=== PATIENT | male | born 1940 | race Caucasian/White ===

== ENCOUNTER 2018-11-04 14:53 | Inpatient (IN) | payer OTHER, MEDICARE ==
--- NOTE | 2018-11-04 16:55 | PDOC ---
History of Present Illness - General Chief Complaint: Injury Stated Complaint: FALL Time Seen by Provider: 11/04/18 16:44 History Source: Patient Exam Limitations: Clinical Condition - History of Present Illness Initial Comments: 78 yo M w a hx of anxiety, dementia, CVA and depression presents to the ER [facility] for repeated falls. The patient was found down by the super of his building who called EMS and had the patient brought into the hospital. The patient admits that he fell down 3 times. He states his knees kept giving out on him and he would fall. He denies hitting his head or neck at any point during the 3 falls. The patient also denies taking any blood thinners or aspirin. The patient states he did not experience LOC from any of the falls. The patient denied having any chest pain or SOB at any point prior to the falls. The patient does endorse mildly decreased PO intake and excessive urination. He states he has been urinating more frequently than usual but denies dysuria or hematuria. Patient also denies recent fevers, chills, headaches, neck pain, blurry vision, N/v/d/c. PCP: None Psychiatrist: Dr. Zackary Avalos Hx: Patient lives alone and has no aid. Smokes 5 cigarettes/day. Denies recent alcohol (last drink Sunday) or illicit drug usage. Allergies: NKA, NKDA PSH: Right shoulder surgery Past History - Past Medical History Allergies/Adverse Reactions: Allergies Allergy/AdvReac Type Severity Reaction Status Date / Time No Known Allergies Allergy Verified 12/12/15 10:22 Home Medications: Ambulatory Orders Zolpidem Tartrate [Ambien] 10 mg PO HS #0 06/08/15 Sertraline HCl [Zoloft -] 200 mg PO DAILY 12/18/15 Bacitracin - [Bacitracin Topical Ointment -] 1 applic TP DAILY tube 12/23/15 Cyanocobalamin [Vitamin B12 -] 100 mcg PO DAILY tablet 12/23/15 Folic Acid - 1 mg PO DAILY tablet 12/23/15 Mirtazapine [Remeron -] 30 mg PO HS tablet 12/23/15 Quetiapine Fumarate [Seroquel -] 25 mg PO HS tablet 12/23/15 Thiamine HCl [Vitamin B1 -] 100 mg PO DAILY tablet 12/23/15 Anemia: No Asthma: No Cancer: No Cardiac Disorders: Yes CVA: Yes COPD: Yes CHF: Yes Dementia: Yes Diabetes: No GI Disorders: No Disorders: No HTN: Yes Hypercholesterolemia: No Liver Disease: No Psychiatric Problems: (anxiety) Seizures: No Thyroid Disease: No - Surgical History Abdominal Surgery: No Appendectomy: Yes Cardiac Surgery: No Cholecystectomy: No Lung Surgery: No Neurologic Surgery: No Orthopedic Surgery: No - Suicide/Smoking/Psychosocial Hx Smoking History: Never smoked Have you smoked in the past 12 months: No Number of Cigarettes Smoked Daily: 10 If you are a former smoker, when did you quit?: 3 YEARS AGO Information on smoking cessation initiated: No 'Breaking Loose' booklet given: 05/31/14 Hx Alcohol Use: No Drug/Substance Use Hx: No Substance Use Type: Prescribed Hx Substance Use Treatment: No Review of Systems - Review of Systems Able to Perform ROS?: Yes Constitutional: Yes: Malaise, Weakness. No: Chills, Diaphoresis, Fever, Loss of Appetite HEENTM: No: Eye Pain, Blurred Vision Respiratory: No: Shortness of Breath, Stridor, Wheezing, Productive cough Cardiac (ROS): Yes: Lightheadedness, Syncope. No: Chest Pain ABD/GI: No: Abdominal Distended, Constipated, Diarrhea, Nausea, Vomiting, Abdominal cramping : Yes: Frequency. No: Burning, Dysuria, Discharge, Flank Pain, Hematuria, Incontinence Musculoskeletal: Yes: Back Pain, Joint Pain Integumentary: Yes: Change in Color, Change in Hair/Nails, Dryness, Erythema, Lesions, Lumps, Pallor, Pruritus, Rash, Other (Fungi) Neurological: Yes: Unsteady Gait. No: Headache, Numbness, Paresthesia, Seizure , Tingling Psychiatric: Yes: Anxiety, Depression Endocrine: No: Excessive Sweating, Flushing, Intolerance to Cold, Intolerance to Heat, Unexplained Weight Loss Hematologic/Lymphatic: No: Blood Clots, Easy Bleeding, Bleeding Diathesis *Physical Exam - Vital Signs Last Vital Signs Temp Pulse Resp BP Pulse Ox 98.5 F 96 H 17 157/55 L 99 11/04/18 15:00 11/04/18 15:00 11/04/18 15:00 11/04/18 15:00 11/04/18 15:00 - Physical Exam General Appearance: Yes: Disheveled, Thin, Other (Not well kept. Soiled in urine and bowel. ). No: Nourished, Appropriately Dressed, Apparent Distress HEENT: positive: EOMI, MARY KAY, Normal ENT Inspection, Normal Voice Neck: positive: Supple Respiratory/Chest: positive: Lungs Clear, Normal Breath Sounds. negative: Respiratory Distress Cardiovascular: positive: Regular Rhythm, Regular Rate, S1, S2. negative: Edema , JVD Vascular Pulses: Dorsalis-Pedis (R): 2+, Doralis-Pedis (L): 2+ Gastrointestinal/Abdominal: positive: Normal Bowel Sounds, Flat, Soft. negative : Distended, Guarding, Rebound Rectal Exam: positive: deferred Lymphatic: negative: Adenopathy Musculoskeletal: positive: Decreased Range of Motion. negative: Vertebral Tenderness Extremity: positive: Normal Capillary Refill, Normal Range of Motion, Pelvis Stable, Erythema, Inflammation. 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 negative: Normal Response, Facial Droop, Confused ED Treatment Course - LABORATORY CBC & Chemistry Diagram: 11/04/18 17:28 11/04/18 17:28 Medical Decision Making - Medical Decision Making 78 yo M w a hx of anxiety, dementia, CVA and depression presents to the ER [facility] for repeated falls. The patient was found down by the super of his building who called EMS and had the patient brought into the hospital. The patient admits that he fell down 3 times. He states his knees kept giving out on him and he would fall. He denies hitting his head or neck at any point during the 3 falls. The patient also denies taking any blood thinners or aspirin. The patient states he did not experience LOC from any of the falls. The patient denied having any chest pain or SOB at any point prior to the falls. The patient does endorse mildly decreased PO intake and excessive urination. He states he has been urinating more frequently than usual but denies dysuria or hematuria. Patient also denies recent fevers, chills, headaches, neck pain, blurry vision, N/v/d/c. Vital Signs Period Temp Pulse Resp BP Sys/Morales Pulse Ox Last 24 Hr 98.5 F 96 17 157/55 99 DDx IBNLT: syncope, acs/mi, Brain bleed - subdural vs cva, electrolyte/ metabolic disturbance, UTI/pylo, PNA, orthostatic, dehydration, rhabdo, fracture Plan: Labs, Urine, CT, XR, EKG, food preparation worker request, Admit Telemtery for repeated falls CMP Sodium 139 mmol/L (136-145) 11/04/18 17:28 Potassium 4.1 mmol/L (3.5-5.1) 11/04/18 17:28 Chloride 104 mmol/L (98-107) 11/04/18 17:28 Carbon Dioxide 26 mmol/L (21-32) 11/04/18 17:28 Anion Gap 9 MMOL/L (8-16) 11/04/18 17:28 BUN 45.0 mg/dL (7-18) H 11/04/18 17:28 Creatinine 2.5 mg/dL (0.55-1.3) H 11/04/18 17:28 Est GFR (CKD-EPI)AfAm 27.86 11/04/18 17:28 Est GFR (CKD-EPI)NonAf 24.04 11/04/18 17:28 Random Glucose 95 mg/dL (74-106) 11/04/18 17:28 Calcium 8.9 mg/dL (8.5-10.1) 11/04/18 17:28 Phosphorus 3.2 mg/dL (2.5-4.9) 11/04/18 17:28 Magnesium 2.5 mg/dL (1.8-2.4) H 11/04/18 17:28 Total Bilirubin 0.5 mg/dL (0.2-1) 11/04/18 17:28 AST 219 U/L (15-37) H 11/04/18 17:28 ALT 90 U/L (13-61) H 11/04/18 17:28 Alkaline Phosphatase 149 U/L (45-117) H 11/04/18 17:28 Creatine Kinase 2143 U/L (26-308) H 11/04/18 17:28 Creatine Kinase Index 3.4 % (0.0-5.0) 11/04/18 17:28 CK-MB (CK-2) 74.2 ng/mL (0.5-3.6) H 11/04/18 17:28 Troponin I 0.05 ng/ml (0.00-0.05) 11/04/18 17:28 Total Protein 7.8 g/dl (6.4-8.2) 11/04/18 17:28 Albumin 4.1 g/dl (3.4-5.0) 11/04/18 17:28 Admitting patient to the hospital for repeated falls, SLY, and social media analyst consultation. *DC/Admit/Observation/Transfer Diagnosis at time of Disposition: Repeated falls, Need for follow-up by social media analyst, Kidney injury, Acute renal failure due to rhabdomyolysis, Fall - Discharge Dispostion Condition at time of disposition: Stable Decision to Admit order: Yes - Referrals - Patient Instructions - Post Discharge Activity
[2018-11-04] MEDS ORDERED: SODIUM CHLORIDE 1,000 ML IV STA (17:03)
[2018-11-04 17:39] LABS: BASO % 0.4 % (0-2.0); EOS % 0.9 % (0-4.5); HEMATOCRIT 46.3 % (35.4-49); HEMOGLOBIN 15.7 GM/dL (11.7-16.9); LYMPH % 7.4 % (8-40); MCH 32.6 pg (25.7-33.7); MCHC 33.8 g/dl (32.0-35.9); MEAN CELL VOLUME 96.5 fl (80-96); MEAN PLT VOLUME 8.4 fl (7.5-11.1); NEUT % 81.3 % (42.8-82.8); PLATELET COUNT 261 K/MM3 (134-434); RBC 4.79 M/mm3 (4.00-5.60); RDW 14.6 % (11.9-15.9); WHITE BLOOD COUNT 9.7 K/mm3 (4.0-10.0)
[2018-11-04 18:00] LABS: PHOSPHOROUS 3.2 mg/dL (2.5-4.9)
[2018-11-04 18:12] LABS: INR 1.32 (0.83-1.09); PROTHROMBIN TIME (PATIENT) 15.6 SEC (9.7-13.0)
[2018-11-04 18:16] LABS: EPI CELLS 0.6 /HPF (0-5/HPF); HYALINE CASTS 16 /lpf (0-8); PH,URINE 5.5 (5.0-8.0); URINE APPEARANCE CLEAR; URINE BILIRUBIN NEGATIVE (NEGATIVE); URINE COLOR YELLOW; URINE GLUCOSE (UA) NEGATIVE (NEGATIVE); URINE KETONE 1+ (NEGATIVE); URINE LEUK ESTERASE NEGATIVE (NEGATIVE); URINE NITRITE NEGATIVE (NEGATIVE); URINE PROTEIN 1+ (NEGATIVE); URINE RBC 2 /hpf (0-4); URINE UROBILINOGEN 0.2 mg/dL (0.2-1.0); URINE WBC 2 /hpf (0-5)
[2018-11-04 18:25] LABS: ALBUMIN 4.1 g/dl (3.4-5.0); BILIRUBIN,TOTAL 0.5 mg/dL (0.2-1); CALCIUM 8.9 mg/dL (8.5-10.1); CREATININE 2.5 mg/dL (0.55-1.3); MAGNESIUM 2.5 mg/dL (1.8-2.4); POTASSIUM 4.1 mmol/L (3.5-5.1); TOT PROT 7.8 g/dl (6.4-8.2)
--- NOTE | 2018-11-04 18:50 | PDOC ---
Documentation entered by Lanny Rollins SCRIBE, acting as scribe for Suzi Meek MD. Suzi Meek MD: This documentation has been prepared by the Ayo mcintyre Brenda, SCRIBE, under my direction and personally reviewed by me in its entirety. I confirm that the documentation accurately reflects all work, treatment, procedures, and medical decision making performed by me. Attending Attestation - Resident Resident Name: ZanderJay - ED Attending Attestation I have performed the following: I have examined & evaluated the patient, The case was reviewed & discussed with the resident, I agree w/resident's findings & plan, Exceptions are as noted - HPI HPI: 11/04/18 18:17 The patient is a 78 year old male, with a significant PMH of anxiety, dementia, CVA and depression who presents to the emergency department via EMS for repeated falls. The patient reported to be found by the super of his building, who then called EMS. The patient states that he fell down 3 times, and that his knees kept giving out on him, causing him to fall. The patient admits to having more frequent urination compared to baseline. The patient denies head trauma or neck trauma. Denies LOC. Denies chest pain, shortness of breath, headache and dizziness. Denies taking any blood thinners or aspirin. Denies fever, chills, nausea, vomiting, diarrhea and constipation. Denies dysuria and hematuria. Allergies: NKA Past surgical history: right shoulder surgery Social history: Lives alone with no aide. Smoked 5 cigarettes per day. No recent alcohol use (Last drink was Sunday). No drug usage. - Physicial Exam PE: 11/04/18 18:17 agree with resident exam - Medical Decision Making 11/04/18 18:44 78yo M presents to the ED after he was found on the ground by super Also reports urinary frequency Vitals unremarkable Pt denies LOC but is poor historian and is very unkempt on exam. States he was down in his home for unknown period of time States the super of his building checks in on him from time to time, but otherwise has no help at home Plan for syncope and trauma w/u. COncern for possible infection vs ischemia vs metabolic disarray vs alcoholism causing pt to fall frequently Anticipate admission. Heart Score/ECG Review #1 11/04/18 18:49 Twelve-lead EKG was performed and reviewed by me. Normal sinus rhythm, rate 89. Normal axis. No ST elevations.
--- NOTE | 2018-11-04 20:36 | HP ---
Admitting History and Physical - Primary Care Physician PCP: Radha Sutton - Admission History of Present Illness: 78 yo M w a hx of anxiety, dementia, CVA and depression presents to the ER [facility] for repeated falls. The patient was found down by the super of his building who called EMS and had the patient brought into the hospital. The patient admits that he fell down 3 times. He states his knees kept giving out on him and he would fall. He denies hitting his head or neck at any point during the 3 falls. The patient also denies taking any blood thinners or aspirin. The patient states he did not experience LOC from any of the falls. The patient denied having any chest pain or SOB at any point prior to the falls. The patient does endorse mildly decreased PO intake and excessive urination. He states he has been urinating more frequently than usual but denies dysuria or hematuria. Patient also denies recent fevers, chills, headaches, neck pain, blurry vision, N/v/d/c. - Past Medical History AIRPORT GUIDE: Yes: CVA Psych: Yes: Addictions, Depression - Smoking History Smoking history: Never smoked Have you smoked in the past 12 months: No Aproximately how many cigarettes per day: 10 If you are a former smoker, when did you quit?: 3 YEARS AGO - Alcohol/Substance Use Hx Alcohol Use: No History of Substance Use: reports: None - Social History ADL: Independent History of Recent Travel: No Home Medications - Allergies Allergies/Adverse Reactions: Allergies Allergy/AdvReac Type Severity Reaction Status Date / Time No Known Allergies Allergy Verified 12/12/15 10:22 - Home Medications Home Medications: Ambulatory Orders Zolpidem Tartrate [Ambien] 10 mg PO HS #0 06/08/15 Sertraline HCl [Zoloft -] 200 mg PO DAILY 12/18/15 Bacitracin - [Bacitracin Topical Ointment -] 1 applic TP DAILY tube 12/23/15 Cyanocobalamin [Vitamin B12 -] 100 mcg PO DAILY tablet 12/23/15 Folic Acid - 1 mg PO DAILY tablet 12/23/15 Mirtazapine [Remeron -] 30 mg PO HS tablet 12/23/15 Quetiapine Fumarate [Seroquel -] 25 mg PO HS tablet 12/23/15 Thiamine HCl [Vitamin B1 -] 100 mg PO DAILY tablet 12/23/15 Physical Examination Vital Signs: Vital Signs Temperature 98.5 F 11/04/18 15:00 Pulse Rate 80 11/04/18 20:16 Respiratory Rate 18 11/04/18 20:16 Blood Pressure 110/77 11/04/18 20:16 O2 Sat by Pulse Oximetry (%) 99 11/04/18 20:16 Constitutional: Yes: No Distress HENT: Yes: Atraumatic Neck: Yes: Supple Cardiovascular: Yes: Regular Rate and Rhythm Respiratory: Yes: Rhonchi Gastrointestinal: Yes: Normal Bowel Sounds Extremities: Yes: Other (scratches on legs) Edema: No Peripheral Pulses WNL: Yes Neurological: Yes: Alert Labs: CBC, BMP 11/04/18 17:28 11/04/18 17:28 Imaging - Results X-ray: Report Reviewed Cat Scan: Report Reviewed Problem List - Problems (1) Need for follow-up by director of social media marketing Assessment/Plan: for placement Code(s): Z09 - ENCNTR FOR F/U EXAM AFT TRTMT FOR COND OTH THAN MALIG NEOPLM (2) Repeated falls Assessment/Plan: PT eval meds need to be adjusted Code(s): R29.6 - REPEATED FALLS (3) Alcohol dependence Code(s): F10.20 - ALCOHOL DEPENDENCE, UNCOMPLICATED (4) Benzodiazepine dependence Code(s): F13.20 - SEDATIVE, HYPNOTIC OR ANXIOLYTIC DEPENDENCE, UNCOMPLICATED (5) Anxiety Code(s): F41.9 - ANXIETY DISORDER, UNSPECIFIED (6) Depression Code(s): F32.9 - MAJOR DEPRESSIVE DISORDER, SINGLE EPISODE, UNSPECIFIED (7) Acute renal failure due to rhabdomyolysis Assessment/Plan: on ivf renal consult Code(s): N17.9 - ACUTE KIDNEY FAILURE, UNSPECIFIED; D21.9 - BENIGN NEOPLASM OF CONNECTIVE AND OTHER SOFT TISSUE, UNSP Assessment/Plan Laboratory Tests 11/04/18 11/04/18 11/04/18 17:28 17:28 17:28 WBC 9.7 RBC 4.79 Hgb 15.7 Hct 46.3 MCV 96.5 H MCH 32.6 MCHC 33.8 RDW 14.6 Plt Count 261 MPV 8.4 Absolute Neuts (auto) 7.9 Neutrophils % 81.3 Lymphocytes % 7.4 L D Monocytes % 10.0 Eosinophils % 0.9 Basophils % 0.4 Nucleated RBC % 0 PT with INR 15.60 H INR 1.32 H Sodium 139 Potassium 4.1 Chloride 104 Carbon Dioxide 26 Anion Gap 9 BUN 45.0 H Creatinine 2.5 H Est GFR (CKD-EPI)AfAm 27.86 Est GFR (CKD-EPI)NonAf 24.04 Random Glucose 95 Calcium 8.9 Phosphorus Magnesium 2.5 H Total Bilirubin 0.5 AST 219 H ALT 90 H Alkaline Phosphatase 149 H Creatine Kinase 2143 H Creatine Kinase Index 3.4 CK-MB (CK-2) 74.2 H Troponin I 0.05 Total Protein 7.8 Albumin 4.1 Urine Color Urine Appearance Urine pH Ur Specific Knox Urine Protein Urine Glucose (UA) Urine Ketones Urine Blood Urine Nitrite Urine Bilirubin Urine Urobilinogen Ur Leukocyte Esterase Urine WBC (Auto) Urine RBC (Auto) Urine Casts (Auto) U Pathogenic Cast Auto U Epithel Cells (Auto) U Sm Round Cell (Auto) Urine Crystals (Auto) Urine Bacteria (Auto) Alcohol, Quantitative Blood Type Antibody Screen 11/04/18 11/04/18 11/04/18 17:28 17:28 17:28 WBC RBC Hgb Hct MCV MCH MCHC RDW Plt Count MPV Absolute Neuts (auto) Neutrophils % Lymphocytes % Monocytes % Eosinophils % Basophils % Nucleated RBC % PT with INR INR Sodium Potassium Chloride Carbon Dioxide Anion Gap BUN Creatinine Est GFR (CKD-EPI)AfAm Est GFR (CKD-EPI)NonAf Random Glucose Calcium Phosphorus 3.2 Magnesium Total Bilirubin AST ALT Alkaline Phosphatase Creatine Kinase Creatine Kinase Index CK-MB (CK-2) Troponin I Total Protein Albumin Urine Color Yellow Urine Appearance Clear Urine pH 5.5 Ur Specific Knox 1.022 Urine Protein 1+ H Urine Glucose (UA) Negative Urine Ketones 1+ H Urine Blood 2+ H Urine Nitrite Negative Urine Bilirubin Negative Urine Urobilinogen 0.2 Ur Leukocyte Esterase Negative Urine WBC (Auto) 2 Urine RBC (Auto) 2 Urine Casts (Auto) 16 U Pathogenic Cast Auto None seen U Epithel Cells (Auto) 0.6 U Sm Round Cell (Auto) No Result Required. Urine Crystals (Auto) No Result Required. Urine Bacteria (Auto) 1.0 Alcohol, Quantitative < 3.0 Blood Type O POSITIVE Antibody Screen Negative Active Medications Generic Name Dose Route Start Last Admin Trade Name Freq PRN Reason Stop Dose Admin Acetaminophen 650 mg 11/04/18 20:39 11/05/18 12:17 Tylenol - PO 650 mg Q6H PRN Administration FEVER Bacitracin 1 applic 11/05/18 22:00 Bacitracin - TP BID JOSUE Cyanocobalamin 100 mcg 11/05/18 10:00 11/05/18 10:05 Vitamin B12 - PO 100 mcg DAILY JOSUE Administration Folic Acid 1 mg 11/05/18 10:00 11/05/18 10:05 Folic Acid - PO 1 mg DAILY JOSUE Administration Heparin Sodium (Porcine) 5,000 unit 11/04/18 22:00 11/05/18 10:12 Heparin - SQ Not Given BID JOSUE Sodium Chloride 1,000 mls @ 75 mls/hr 11/04/18 20:45 11/05/18 10:05 Normal Saline - IV 75 mls/hr ASDIR JOSUE Administration Mirtazapine 30 mg 11/04/18 22:00 11/04/18 22:37 Remeron - PO 30 mg HS JOSUE Administration Quetiapine Fumarate 25 mg 11/04/18 22:00 11/04/18 22:37 Seroquel - PO 25 mg HS JOSUE Administration Thiamine HCl 100 mg 11/05/18 10:00 11/05/18 10:05 Vitamin B1 - PO 100 mg DAILY JOSUE Administration
[2018-11-04] MEDS ORDERED: ACETAMINOPHEN 325 MG TABLET (FP) PO PRN (20:39)
[2018-11-04] MEDS ORDERED: MIRTAZAPINE 15 MG TABLET (FP) ONE (21:57)
[2018-11-04] MEDS: SODIUM CHLORIDE 1,000 ML IV SCH (22:36)
[2018-11-04] MEDS: QUEtiapine FUMARATE 25 MG TABLET (FP) PO SCH (22:37)
[2018-11-04] MEDS: HEPARIN NA (PORCINE) 5,000 UNITS/ML 1ML VIAL SQ SCH ×2 (22:37→22:46)
[2018-11-04] MEDS: MIRTAZAPINE 30 MG TABLET (FP) PO SCH (22:37)
[2018-11-05 01:43] VITALS: BMI 24.3
[2018-11-05] MEDS: THIAMINE HCL 100 MG TABLET (FP) PO SCH (10:05)
[2018-11-05] MEDS: SODIUM CHLORIDE 1,000 ML IV SCH (10:05)
[2018-11-05] MEDS: CYANOCOBALAMIN (VITAMIN B-12) 100 MCG TABLET PO SCH (10:05)
[2018-11-05] MEDS: HEPARIN NA (PORCINE) 5,000 UNITS/ML 1ML VIAL SQ SCH ×3 (10:05→21:32)
[2018-11-05] MEDS: FOLIC ACID 1 MG TABLET (FP) PO SCH (10:05)
--- NOTE | 2018-11-05 12:12 | EKG ---
Test Reason : Blood Pressure : / mmHG Vent. Rate : 089 BPM Atrial Rate : 089 BPM P-R Int : 186 ms QRS Dur : 082 ms QT Int : 388 ms P-R-T Axes : 078 079 072 degrees QTc Int : 472 ms NORMAL SINUS RHYTHM POSSIBLE LEFT ATRIAL ENLARGEMENT BORDERLINE ECG Confirmed by MD TANO, MALIHA ([id number]) on 11/05/2018 12:12:07 PM Referred By: Confirmed By:MALIHA FREEDMAN MD
--- NOTE | 2018-11-05 13:22 | CONSULT ---
Consult Consult Specialty:: Nephrology Reason for Consultation:: SLY - History of Present Illness Chief Complaint: repeated fall History of Present Illness: Pt is a 78 year old male with pmhx of anxiety, ckd, sly, dementia, cva and depression who presents to the ER with repeat falls. He is says that he fell about three times. He feels that he fell because his legs gave out. He was found to have worsening renal function and I was called to evaluate him. He denies shortness of breath. He denies fevers or chills. He denies dysuria or hematuria. He denies nsaid use. - History Source History Provided By: Patient, Medical Record - Past Medical History SIGN HANGER: Yes: CVA Renal/: Yes: Renal Inusuff Psych: Yes: Addictions, Anxiety, Depression - Alcohol/Substance Use Hx Alcohol Use: No History of Substance Use: reports: None - Smoking History Smoking history: Never smoked Have you smoked in the past 12 months: No Aproximately how many cigarettes per day: 10 If you are a former smoker, when did you quit?: 3 YEARS AGO - Social History Usual Living Arrangement: Alone ADL: Independent History of Recent Travel: No Home Medications - Allergies Allergies/Adverse Reactions: Allergies Allergy/AdvReac Type Severity Reaction Status Date / Time No Known Allergies Allergy Verified 12/12/15 10:22 - Home Medications Home Medications: Ambulatory Orders Zolpidem Tartrate [Ambien] 10 mg PO HS #0 06/08/15 Sertraline HCl [Zoloft -] 200 mg PO DAILY 12/18/15 Bacitracin - [Bacitracin Topical Ointment -] 1 applic TP DAILY tube 12/23/15 Cyanocobalamin [Vitamin B12 -] 100 mcg PO DAILY tablet 12/23/15 Folic Acid - 1 mg PO DAILY tablet 12/23/15 Mirtazapine [Remeron -] 30 mg PO HS tablet 12/23/15 Quetiapine Fumarate [Seroquel -] 25 mg PO HS tablet 12/23/15 Thiamine HCl [Vitamin B1 -] 100 mg PO DAILY tablet 12/23/15 Family Disease History - Family Disease History Family History: Denies Review of Systems - Review of Systems Constitutional: reports: Malaise Eyes: reports: No Symptoms HENT: reports: No Symptoms Neck: reports: No Symptoms Cardiovascular: reports: No Symptoms Respiratory: reports: No Symptoms Gastrointestinal: reports: No Symptoms Genitourinary: reports: No Symptoms Musculoskeletal: reports: Muscle Weakness Integumentary: reports: Bruising Neurological: reports: No Symptoms Endocrine: reports: No Symptoms Hematology/Lymphatic: reports: No Symptoms Psychiatric: reports: No Symptoms Physical Exam Vital Signs: Vital Signs Temperature 98 F 11/05/18 10:00 Pulse Rate 86 11/05/18 10:00 Respiratory Rate 18 11/05/18 10:00 Blood Pressure 164/78 11/05/18 10:00 O2 Sat by Pulse Oximetry (%) 100 11/04/18 21:25 Constitutional: Yes: Calm Eyes: Yes: Conjunctiva Clear HENT: Yes: Atraumatic Cardiovascular: Yes: S1, S2 Respiratory: Yes: CTA Bilaterally Gastrointestinal: Yes: Soft Renal/: Yes: WNL Musculoskeletal: Yes: WNL Edema: No Integumentary: Yes: Laceration Neurological: Yes: Oriented Psychiatric: Yes: Oriented Labs: CBC, BMP 11/04/18 17:28 11/04/18 17:28 Laboratory Tests 06/05/15 12/12/15 12/13/15 07:15 10:45 07:20 WBC Hgb Plt Count Sodium Potassium Chloride BUN Creatinine 1.2 3.4 H D 1.5 H D Urine Protein Urine Blood 12/14/15 12/15/15 12/16/15 07:00 07:45 08:10 WBC Hgb Plt Count Sodium Potassium Chloride BUN Creatinine 1.2 1.3 1.2 Urine Protein Urine Blood 12/17/15 12/21/15 12/22/15 08:00 05:55 09:00 WBC Hgb Plt Count Sodium Potassium Chloride BUN Creatinine 1.3 1.6 H D 1.6 H Urine Protein Urine Blood 12/23/15 11/04/18 11/04/18 06:15 17:28 17:28 WBC 9.7 Hgb 15.7 Plt Count 261 Sodium 139 Potassium 4.1 Chloride 104 BUN 45.0 H Creatinine 1.5 H 2.5 H Urine Protein Urine Blood 11/04/18 17:28 WBC Hgb Plt Count Sodium Potassium Chloride BUN Creatinine Urine Protein 1+ H Urine Blood 2+ H Imaging - Results Chest X-ray: Report Reviewed Problem List - Problems (1) Fall Code(s): W19.XXXA - UNSPECIFIED FALL, INITIAL ENCOUNTER (2) Kidney injury Code(s): S37.009A - UNSPECIFIED INJURY OF UNSPECIFIED KIDNEY, INITIAL ENCOUNTER (3) Repeated falls Code(s): R29.6 - REPEATED FALLS Assessment/Plan Current Medications Generic Name Dose Route Start Last Admin Trade Name Pacoq PRN Reason Stop Dose Admin Acetaminophen 650 mg 11/04/18 20:39 11/05/18 12:17 Tylenol - PO 650 mg Q6H PRN Administration FEVER Cyanocobalamin 100 mcg 11/05/18 10:00 11/05/18 10:05 Vitamin B12 - PO 100 mcg DAILY JOSUE Administration Folic Acid 1 mg 11/05/18 10:00 11/05/18 10:05 Folic Acid - PO 1 mg DAILY JOSUE Administration Heparin Sodium (Porcine) 5,000 unit 11/04/18 22:00 11/05/18 10:12 Heparin - SQ Not Given BID JOSUE Sodium Chloride 1,000 mls @ 75 mls/hr 11/04/18 20:45 11/05/18 10:05 Normal Saline - IV 75 mls/hr ASDIR JOSUE Administration Mirtazapine 30 mg 11/04/18 22:00 11/04/18 22:37 Remeron - PO 30 mg HS JOSUE Administration Quetiapine Fumarate 25 mg 11/04/18 22:00 11/04/18 22:37 Seroquel - PO 25 mg HS JOSUE Administration Thiamine HCl 100 mg 11/05/18 10:00 11/05/18 10:05 Vitamin B1 - PO 100 mg DAILY JOSUE Administration Laboratory Tests 11/04/18 17:28 Creatine Kinase 2143 H Impression 1. SLY 2. rhabdo 3. hx CVA 4. depression 5. etoh abuse 6. multiple abrasions Plan - cont with fluids - monitor cpk levels - check renal ultrasound - check ua and urine lytes - pt is tolerating diet
--- NOTE | 2018-11-05 17:12 | PN ---
Progress Note, Physician - Current Medication List Current Medications: Active Medications Acetaminophen (Tylenol -) 650 mg PO Q6H PRN PRN Reason: FEVER Last Admin: 11/05/18 12:17 Dose: 650 mg Bacitracin (Bacitracin -) 1 applic TP BID [facility] Cyanocobalamin (Vitamin B12 -) 100 mcg PO DAILY [facility] Last Admin: 11/05/18 10:05 Dose: 100 mcg Folic Acid (Folic Acid -) 1 mg PO DAILY [facility] Last Admin: 11/05/18 10:05 Dose: 1 mg Heparin Sodium (Porcine) (Heparin -) 5,000 unit SQ BID [facility] Last Admin: 11/05/18 10:12 Dose: Not Given Sodium Chloride (Normal Saline -) 1,000 mls @ 75 mls/hr IV ASDIR [facility] Last Admin: 11/05/18 10:05 Dose: 75 mls/hr Mirtazapine (Remeron -) 30 mg PO HS [facility] Last Admin: 11/04/18 22:37 Dose: 30 mg Quetiapine Fumarate (Seroquel -) 25 mg PO [facility] Last Admin: 11/04/18 22:37 Dose: 25 mg Thiamine HCl (Vitamin B1 -) 100 mg PO DAILY [facility] Last Admin: 11/05/18 10:05 Dose: 100 mg - Objective Vital Signs: Vital Signs Temperature 98.7 F 11/05/18 14:00 Pulse Rate 92 H 11/05/18 14:00 Respiratory Rate 18 11/05/18 10:00 Blood Pressure 154/78 11/05/18 14:00 O2 Sat by Pulse Oximetry (%) 98 11/05/18 09:00 Constitutional: Yes: No Distress HENT: Yes: Atraumatic Neck: Yes: Supple Cardiovascular: Yes: Regular Rate and Rhythm Respiratory: Yes: CTA Bilaterally Gastrointestinal: Yes: Normal Bowel Sounds Extremities: Yes: WNL Neurological: Yes: Alert Labs: CBC, BMP 11/04/18 17:28 11/04/18 17:28 INR, PTT INR 1.32 (0.83-1.09) H 11/04/18 17:28 Problem List - Problems (1) Need for follow-up by nursing home social worker Assessment/Plan: for placement Code(s): Z09 - ENCNTR FOR F/U EXAM AFT TRTMT FOR COND OTH THAN KAMILAHIG NEOPLM (2) Repeated falls Assessment/Plan: PT eval meds need to be adjusted Code(s): R29.6 - REPEATED FALLS (3) Alcohol dependence Code(s): F10.20 - ALCOHOL DEPENDENCE, UNCOMPLICATED (4) Benzodiazepine dependence Code(s): F13.20 - SEDATIVE, HYPNOTIC OR ANXIOLYTIC DEPENDENCE, UNCOMPLICATED (5) Anxiety Code(s): F41.9 - ANXIETY DISORDER, UNSPECIFIED (6) Depression Code(s): F32.9 - MAJOR DEPRESSIVE DISORDER, SINGLE EPISODE, UNSPECIFIED (7) Acute renal failure due to rhabdomyolysis Assessment/Plan: on ivf renal consult fu cpk Code(s): N17.9 - ACUTE KIDNEY FAILURE, UNSPECIFIED; D21.9 - BENIGN NEOPLASM OF CONNECTIVE AND OTHER SOFT TISSUE, UNSP
[2018-11-05] MEDS ORDERED: MIRTAZAPINE 15 MG TABLET (FP) ONE (20:58)
[2018-11-05] MEDS: BACITRACIN 15 GM TUBE TOPICAL OINTMENT TP SCH (21:29)
[2018-11-05] MEDS: MIRTAZAPINE 30 MG TABLET (FP) PO SCH (21:32)
[2018-11-05] MEDS: QUEtiapine FUMARATE 25 MG TABLET (FP) PO SCH (21:32)
[2018-11-06 08:11] LABS: ALBUMIN 3.3 g/dl (3.4-5.0); BILIRUBIN,TOTAL 0.6 mg/dL (0.2-1); BLOOD UREA NITROGEN 19.3 mg/dL (7-18); CALCIUM 8.1 mg/dL (8.5-10.1); CREATININE 1.3 mg/dL (0.55-1.3); POTASSIUM 4.2 mmol/L (3.5-5.1); TOT PROT 6.7 g/dl (6.4-8.2)
[2018-11-06] MEDS ORDERED: PT OWN MED DRAWER 7, Y5N ONE (08:59)
[2018-11-06] MEDS: FOLIC ACID 1 MG TABLET (FP) PO SCH (09:30)
[2018-11-06] MEDS: CYANOCOBALAMIN (VITAMIN B-12) 100 MCG TABLET PO SCH (09:30)
[2018-11-06] MEDS: THIAMINE HCL 100 MG TABLET (FP) PO SCH (09:31)
[2018-11-06] MEDS: BACITRACIN 15 GM TUBE TOPICAL OINTMENT TP SCH ×2 (09:32→21:52)
[2018-11-06] MEDS: HEPARIN NA (PORCINE) 5,000 UNITS/ML 1ML VIAL SQ SCH ×2 (09:35→21:52)
--- NOTE | 2018-11-06 09:36 | PN ---
Progress Note (short form) - Note Progress Note: Asked to see Estee for an evaluation of his psychiatric meds as he is having frequent falls. Patient has a known psychiatric history and was diagnosed with anxiety/ depression. He is followed by psychiatric, Dr. Raymundo . He is adamant about not stopping Seroquel As per ISTOP patient is currently on 1 Ativan.5 mgs tid and Ativan 1mg daily. 2 Ambien 10 q hs. Also on 3 Remeron 30 mgs q hs 4 Seroquel 25 mgs q hs. Patient was seen at the bedside this am, having his breakfast. He was awake and alert x4. When asked about his frequent falls, he blamed it on the carpet Combination of benzo, Ambien, Seroquel and Remeron all can contribute towards falls due to dizziness and increased sedation in the elderly. Seroquel can cause orthostasis. Rec: Continue Seroquel- stop if he agrees Continue Remeron- at 30 mgs its less sedating DC Luis Enrique Consider a decrease in Ativan upon his discharge - at home meds. Petr Link NPP- Psych.
--- NOTE | 2018-11-06 11:04 | PN ---
Progress Note, Physician History of Present Illness: Pt seen and examined at bedside. He is awake and alert. He denies shortness of breath. - Current Medication List Current Medications: Active Medications Acetaminophen (Tylenol -) 650 mg PO Q6H PRN PRN Reason: FEVER Last Admin: 11/05/18 12:17 Dose: 650 mg Bacitracin (Bacitracin -) 1 applic TP BID [facility] Last Admin: 11/06/18 09:32 Dose: 1 applic Cyanocobalamin (Vitamin B12 -) 100 mcg PO DAILY [facility] Last Admin: 11/06/18 09:30 Dose: 100 mcg Folic Acid (Folic Acid -) 1 mg PO DAILY [facility] Last Admin: 11/06/18 09:30 Dose: 1 mg Heparin Sodium (Porcine) (Heparin -) 5,000 unit SQ BID [facility] Last Admin: 11/06/18 09:35 Dose: Not Given Sodium Chloride (Normal Saline -) 1,000 mls @ 75 mls/hr IV ASDIR [facility] Last Admin: 11/05/18 10:05 Dose: 75 mls/hr Mirtazapine (Remeron -) 30 mg PO HS [facility] Last Admin: 11/05/18 21:32 Dose: 30 mg Quetiapine Fumarate (Seroquel -) 25 mg PO HS [facility] Last Admin: 11/05/18 21:32 Dose: 25 mg Thiamine HCl (Vitamin B1 -) 100 mg PO DAILY [facility] Last Admin: 11/06/18 09:31 Dose: 100 mg - Objective Vital Signs: Vital Signs Temperature 99.2 F 11/06/18 09:55 Pulse Rate 89 11/06/18 09:55 Respiratory Rate 20 11/06/18 09:55 Blood Pressure 126/67 11/06/18 09:55 O2 Sat by Pulse Oximetry (%) 98 11/05/18 21:00 Constitutional: Yes: Calm Eyes: Yes: Conjunctiva Clear HENT: Yes: Atraumatic Cardiovascular: Yes: S1, S2 Respiratory: Yes: CTA Bilaterally Gastrointestinal: Yes: Soft Genitourinary: Yes: WNL Musculoskeletal: Yes: WNL Edema: No Neurological: Yes: Oriented Psychiatric: Yes: Oriented Labs: CBC, BMP 11/04/18 17:28 11/06/18 07:05 INR, PTT INR 1.32 (0.83-1.09) H 11/04/18 17:28 Problem List - Problems (1) Fall Code(s): W19.XXXA - UNSPECIFIED FALL, INITIAL ENCOUNTER (2) Kidney injury Code(s): S37.009A - UNSPECIFIED INJURY OF UNSPECIFIED KIDNEY, INITIAL ENCOUNTER (3) Repeated falls Code(s): R29.6 - REPEATED FALLS Assessment/Plan Current Medications Generic Name Dose Route Start Last Admin Trade Name Shaylee PRN Reason Stop Dose Admin Acetaminophen 650 mg 11/04/18 20:39 11/05/18 12:17 Tylenol - PO 650 mg Q6H PRN Administration FEVER Bacitracin 1 applic 11/05/18 22:00 11/06/18 09:32 Bacitracin - TP 1 applic BID JOSUE Administration Cyanocobalamin 100 mcg 11/05/18 10:00 11/06/18 09:30 Vitamin B12 - PO 100 mcg DAILY JOSUE Administration Folic Acid 1 mg 11/05/18 10:00 11/06/18 09:30 Folic Acid - PO 1 mg DAILY JOSUE Administration Heparin Sodium (Porcine) 5,000 unit 11/04/18 22:00 11/06/18 09:35 Heparin - SQ Not Given BID JOSUE Sodium Chloride 1,000 mls @ 75 mls/hr 11/04/18 20:45 11/05/18 10:05 Normal Saline - IV 75 mls/hr ASDIR JOSUE Administration Mirtazapine 30 mg 11/04/18 22:00 11/05/18 21:32 Remeron - PO 30 mg HS JOSUE Administration Quetiapine Fumarate 25 mg 11/04/18 22:00 11/05/18 21:32 Seroquel - PO 25 mg HS JOSUE Administration Thiamine HCl 100 mg 11/05/18 10:00 11/06/18 09:31 Vitamin B1 - PO 100 mg DAILY JOSUE Administration Laboratory Tests 11/04/18 11/06/18 17:28 07:05 Creatine Kinase 2143 H 535 H Laboratory Tests 11/04/18 17:28 Urine Protein 1+ H Urine Blood 2+ H Impression 1. SLY 2. rhabdo 3. hx CVA 4. depression 5. etoh abuse 6. multiple abrasions Plan - decrease rate of fluids - renal function is improved - cpk is improved - repeat labs in am - repeat ua - check renal ultrasound - pt is tolerating diet
[2018-11-06] MEDS ORDERED: SODIUM CHLORIDE 1,000 ML IV SCH (11:05)
--- NOTE | 2018-11-06 18:32 | PN ---
Progress Note, Physician History of Present Illness: stable - Current Medication List Current Medications: Active Medications Acetaminophen (Tylenol -) 650 mg PO Q6H PRN PRN Reason: FEVER Last Admin: 11/05/18 12:17 Dose: 650 mg Bacitracin (Bacitracin -) 1 applic TP BID [facility] Last Admin: 11/06/18 09:32 Dose: 1 applic Cyanocobalamin (Vitamin B12 -) 100 mcg PO DAILY [facility] Last Admin: 11/06/18 09:30 Dose: 100 mcg Folic Acid (Folic Acid -) 1 mg PO DAILY [facility] Last Admin: 11/06/18 09:30 Dose: 1 mg Heparin Sodium (Porcine) (Heparin -) 5,000 unit SQ BID [facility] Last Admin: 11/06/18 09:35 Dose: Not Given Sodium Chloride (Normal Saline -) 1,000 mls @ 40 mls/hr IV ASDIR [facility] Mirtazapine (Remeron -) 30 mg PO [facility] Last Admin: 11/05/18 21:32 Dose: 30 mg Quetiapine Fumarate (Seroquel -) 25 mg PO [facility] Last Admin: 11/05/18 21:32 Dose: 25 mg Thiamine HCl (Vitamin B1 -) 100 mg PO DAILY [facility] Last Admin: 11/06/18 09:31 Dose: 100 mg - Objective Vital Signs: Vital Signs Temperature 98.7 F 11/06/18 14:00 Pulse Rate 90 11/06/18 14:00 Respiratory Rate 20 11/06/18 14:00 Blood Pressure 165/83 11/06/18 14:00 O2 Sat by Pulse Oximetry (%) 98 11/05/18 21:00 Constitutional: Yes: No Distress HENT: Yes: Atraumatic Neck: Yes: Supple Cardiovascular: Yes: Regular Rate and Rhythm Respiratory: Yes: CTA Bilaterally Gastrointestinal: Yes: Normal Bowel Sounds Extremities: Yes: WNL Edema: No Peripheral Pulses WNL: Yes Neurological: Yes: Alert, Oriented Labs: CBC, BMP 11/04/18 17:28 11/06/18 07:05 INR, PTT INR 1.32 (0.83-1.09) H 11/04/18 17:28 Problem List - Problems (1) Need for follow-up by social economist Assessment/Plan: for placement Code(s): Z09 - ENCNTR FOR F/U EXAM AFT TRTMT FOR COND OTH THAN MALIG NEOPLM (2) Repeated falls Assessment/Plan: PT eval meds need to be adjusted Code(s): R29.6 - REPEATED FALLS (3) Alcohol dependence Code(s): F10.20 - ALCOHOL DEPENDENCE, UNCOMPLICATED (4) Benzodiazepine dependence Code(s): F13.20 - SEDATIVE, HYPNOTIC OR ANXIOLYTIC DEPENDENCE, UNCOMPLICATED (5) Anxiety Code(s): F41.9 - ANXIETY DISORDER, UNSPECIFIED (6) Depression Code(s): F32.9 - MAJOR DEPRESSIVE DISORDER, SINGLE EPISODE, UNSPECIFIED (7) Acute renal failure due to rhabdomyolysis Code(s): N17.9 - ACUTE KIDNEY FAILURE, UNSPECIFIED; D21.9 - BENIGN NEOPLASM OF CONNECTIVE AND OTHER SOFT TISSUE, UNSP
[2018-11-06] MEDS ORDERED: MIRTAZAPINE 15 MG TABLET (FP) ONE (21:08)
[2018-11-06] MEDS: QUEtiapine FUMARATE 25 MG TABLET (FP) PO SCH (21:50)
[2018-11-06] MEDS: MIRTAZAPINE 30 MG TABLET (FP) PO SCH (21:51)
[2018-11-07 07:08] LABS: BLOOD UREA NITROGEN 19.8 mg/dL (7-18); CALCIUM 8.1 mg/dL (8.5-10.1); CREATININE 1.2 mg/dL (0.55-1.3)
[2018-11-07] MEDS: FOLIC ACID 1 MG TABLET (FP) PO SCH (09:30)
[2018-11-07] MEDS: CYANOCOBALAMIN (VITAMIN B-12) 100 MCG TABLET PO SCH (09:30)
[2018-11-07] MEDS: HEPARIN NA (PORCINE) 5,000 UNITS/ML 1ML VIAL SQ SCH (09:31)
[2018-11-07] MEDS: BACITRACIN 15 GM TUBE TOPICAL OINTMENT TP SCH (09:34)
[2018-11-07] MEDS: THIAMINE HCL 100 MG TABLET (FP) PO SCH (09:34)
--- NOTE | 2018-11-07 10:14 | CON.CARD ---
Consult Consult Specialty:: Cardiology Referred by:: Radha Sutton MD Reason for Consultation:: Frequent falls - History of Present Illness Chief Complaint: Frequent falls History of Present Illness: Pt is a 78 year old male with pmhx of anxiety, ckd, sly, dementia, cva and depression who presents to the ER with repeat falls, states that he slipped on carpet and legs gave out, denies near or true syncope. He was found to have rhabdomyolysis and worsening renal function and admits to mildly decreased oral intake and excessive urination. He denies shortness of breath. He denies fevers or chills. He denies dysuria or hematuria. He denies nsaid use. 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 Renal/: Yes: Renal Inusuff Psych: Yes: Addictions, Depression - Alcohol/Substance Use Hx Alcohol Use: No History of Substance Use: reports: None - Smoking History Smoking history: Never smoked Have you smoked in the past 12 months: No Aproximately how many cigarettes per day: 10 If you are a former smoker, when did you quit?: 3 YEARS AGO - Social History Usual Living Arrangement: Alone ADL: Independent History of Recent Travel: No Home Medications - Allergies Allergies/Adverse Reactions: Allergies Allergy/AdvReac Type Severity Reaction Status Date / Time No Known Allergies Allergy Verified 12/12/15 10:22 - Home Medications Home Medications: Ambulatory Orders Zolpidem Tartrate [Ambien] 10 mg PO HS #0 06/08/15 Sertraline HCl [Zoloft -] 200 mg PO DAILY 12/18/15 Bacitracin - [Bacitracin Topical Ointment -] 1 applic TP DAILY tube 12/23/15 Cyanocobalamin [Vitamin B12 -] 100 mcg PO DAILY tablet 12/23/15 Folic Acid - 1 mg PO DAILY tablet 12/23/15 Mirtazapine [Remeron -] 30 mg PO HS tablet 12/23/15 Quetiapine Fumarate [Seroquel -] 25 mg PO HS tablet 12/23/15 Thiamine HCl [Vitamin B1 -] 100 mg PO DAILY tablet 12/23/15 Vital Signs: Vital Signs Temperature 98.6 F 11/07/18 06:00 Pulse Rate 86 11/07/18 06:00 Respiratory Rate 20 11/07/18 06:00 Blood Pressure 142/84 11/07/18 06:00 O2 Sat by Pulse Oximetry (%) 98 11/06/18 21:00 Constitutional: Yes: No Distress, Calm, Thin Neck: Yes: Supple Respiratory: Yes: Regular, CTA Bilaterally Gastrointestinal: Yes: Soft, Hypoactive Bowel Sounds Cardiovascular: Yes: Regular Rate and Rhythm JVD: No Carotid Bruit: No Heart Sounds: Yes: S1, S2 Edema: No - Other Data Labs, Other Data: CBC, BMP 11/04/18 17:28 11/07/18 06:05 INR, PTT INR 1.32 (0.83-1.09) H 11/04/18 17:28 Troponin, BNP 11/06/18 20:00 Troponin I < 0.02 Troponin, BNP 11/06/18 20:00 Troponin I < 0.02 NSR :AE Echo: Pending Imaging - Results Chest X-ray: Report Reviewed (NAD) Problem List - Problems (1) Acute renal failure due to rhabdomyolysis Code(s): N17.9 - ACUTE KIDNEY FAILURE, UNSPECIFIED; D21.9 - BENIGN NEOPLASM OF CONNECTIVE AND OTHER SOFT TISSUE, UNSP (2) Fall Code(s): W19.XXXA - UNSPECIFIED FALL, INITIAL ENCOUNTER Qualifiers: Encounter type: subsequent encounter Qualified Code(s): W19.XXXD - Unspecified fall, subsequent encounter (3) Repeated falls Code(s): R29.6 - REPEATED FALLS (4) Anxiety Code(s): F41.9 - ANXIETY DISORDER, UNSPECIFIED (5) Benzodiazepine dependence Code(s): F13.20 - SEDATIVE, HYPNOTIC OR ANXIOLYTIC DEPENDENCE, UNCOMPLICATED (6) Depression Code(s): F32.9 - MAJOR DEPRESSIVE DISORDER, SINGLE EPISODE, UNSPECIFIED (7) Alcohol dependence with uncomplicated withdrawal Code(s): F10.230 - ALCOHOL DEPENDENCE WITH WITHDRAWAL, UNCOMPLICATED Assessment/Plan 1. SLY improving 2. Rhabdomyolysis resolving 3. hx CVA 4. Anxiety/depression 5. Etoh abuse 6. Frequent falls Plan 1. IVF with monitor renal recovery and CPK improvement 2. F/u echocardiogram already ordered and renal U/S, application development consultant shows no events thus far 3. Psych input appreciated: combination of benzo, Ambien, Seroquel and Remeron all can contribute towards falls due to dizziness and increased sedation in the elderly. Seroquel can cause orthostasis. 4. PT/gait training 5. Thank you for consultative opportunity
--- NOTE | 2018-11-07 14:07 | ECHO ---
Name: NATAN ZEPEDA Exam:Adult Echocardiogram Study Date: 11/07/2018 09:36 AM Age: 78 yrs Reason For Study: CVA PT FELL Height: 68 in Weight: 152 lb BSA: 1.8 m2 MMode/2D Measurements & Calculations IVSd: 0.74 cm Ao root diam: 2.8 cm LVIDd: 4.4 cm LA dimension: 2.9 cm LVIDs: 3.1 cm LVPWd: 0.73 cm EDV(Teich): 89.6 ml LVOT diam: 2.0 cm ESV(Teich): 37.5 ml Doppler Measurements & Calculations MV E max aleksandr: 67.1 cm/sec Ao V2 max: 193.2 cm/sec MV A max aleksandr: 99.2 cm/sec Ao max P.9 mmHg MV E/A: 0.68 Ao V2 mean: 153.0 cm/sec MV dec time: 0.17 sec Ao mean P.0 mmHg Ao V2 VTI: 41.0 cm JOEY(I,D): 1.6 cm2 AI P1/2t: 354.2 msec JOEY(V,D): 1.9 cm2 AI max aleksandr: 320.0 cm/sec LV V1 max P.8 mmHg AI max P.0 mmHg LV V1 mean P.6 mmHg AI dec slope: 264.6 cm/sec2 LV V1 max: 120.4 cm/sec LV V1 mean: 74.0 cm/sec LV V1 VTI: 21.1 cm MR max aleksandr: 312.2 cm/sec SV(LVOT): 64.0 ml MR max P.0 mmHg TR max aleksandr: 205.2 cm/sec Med Peak E' Aleksandr: 8.8 cm/sec TR max P.8 mmHg Med E/e': 7.7 Lat Peak E' Aleksandr: 7.7 cm/sec Lat E/e': 8.7 Procedure A complete two-dimensional transthoracic echocardiogram was performed (2D, M-mode, Doppler and color flow Doppler). Left Ventricle The left ventricular size, thickness and function are normal. The left ventricular ejection fraction is normal. Ejection Fraction = 55-60%. The left ventricular wall motion is normal. Right Ventricle The right ventricle is normal in size and function. Atria Normal left and right atrial size and function. Mitral Valve There is trace mitral regurgitation. Tricuspid Valve No tricuspid regurgitation. There was insufficient TR detected to calculate RV systolic pressure. Aortic Valve Mild valvular aortic stenosis. Moderate aortic regurgitation. Pulmonic Valve There is no pulmonic valvular regurgitation. Great Vessels The aortic root is normal size. Pericardium/Pleura There is no pericardial effusion. Interpretation Summary The left ventricular size, thickness and function are normal The right ventricle is normal in size and function. There is trace mitral regurgitation. Moderate aortic regurgitation. Mild valvular aortic stenosis. MD Jose Ambrocio 11/07/2018 02:07 PM
[2018-11-07 15:15] VITALS: BP 147/71; PULSE 77; TEMP 98.4
--- NOTE | 2018-11-07 16:23 | DS ---
Physical Examination Vital Signs: Vital Signs Temperature 98.4 F 11/07/18 14:00 Pulse Rate 77 11/07/18 14:00 Respiratory Rate 20 11/07/18 14:00 Blood Pressure 147/71 11/07/18 14:00 O2 Sat by Pulse Oximetry (%) 97 11/07/18 09:00 Constitutional: Yes: No Distress HENT: Yes: Atraumatic Neck: Yes: Supple Cardiovascular: Yes: Regular Rate and Rhythm Respiratory: Yes: CTA Bilaterally Gastrointestinal: Yes: Normal Bowel Sounds Extremities: Yes: WNL Edema: No Neurological: Yes: Alert, Oriented Labs: CBC, BMP 11/04/18 17:28 11/07/18 06:05 Discharge Summary Reason For Visit: REPEATED FALLS / FOLLOW UP Current Active Problems Acute renal failure due to rhabdomyolysis (Acute) Fall (Acute) Kidney injury (Acute) Need for follow-up by social sciences instructor (Acute) Repeated falls (Acute) Condition: Stable - Instructions - Home Medications Comprehensive Discharge Medication List: Ambulatory Orders Zolpidem Tartrate [Ambien] 10 mg PO HS #0 06/08/15 Sertraline HCl [Zoloft -] 200 mg PO DAILY 12/18/15 Bacitracin - [Bacitracin Topical Ointment -] 1 applic TP DAILY tube 12/23/15 Cyanocobalamin [Vitamin B12 -] 100 mcg PO DAILY tablet 12/23/15 Folic Acid - 1 mg PO DAILY tablet 12/23/15 Mirtazapine [Remeron -] 30 mg PO HS tablet 12/23/15 Quetiapine Fumarate [Seroquel -] 25 mg PO HS tablet 12/23/15 Thiamine HCl [Vitamin B1 -] 100 mg PO DAILY tablet 12/23/15 cleared to be dc
--- NOTE | 2018-11-07 16:47 | PN ---
Progress Note, Physician History of Present Illness: Pt seen and examined at bedside. He is awake and alert. He denies shortness of breath. - Current Medication List Current Medications: Active Medications Acetaminophen (Tylenol -) 650 mg PO Q6H PRN PRN Reason: FEVER Last Admin: 11/05/18 12:17 Dose: 650 mg Bacitracin (Bacitracin -) 1 applic TP BID [facility] Last Admin: 11/07/18 09:34 Dose: 1 applic Cyanocobalamin (Vitamin B12 -) 100 mcg PO DAILY [facility] Last Admin: 11/07/18 09:30 Dose: 100 mcg Folic Acid (Folic Acid -) 1 mg PO DAILY [facility] Last Admin: 11/07/18 09:30 Dose: 1 mg Heparin Sodium (Porcine) (Heparin -) 5,000 unit SQ BID [facility] Last Admin: 11/07/18 09:31 Dose: 5,000 unit Mirtazapine (Remeron -) 30 mg PO [facility] Last Admin: 11/06/18 21:51 Dose: 30 mg Quetiapine Fumarate (Seroquel -) 25 mg PO [facility] Last Admin: 11/06/18 21:50 Dose: 25 mg Thiamine HCl (Vitamin B1 -) 100 mg PO DAILY [facility] Last Admin: 11/07/18 09:34 Dose: 100 mg - Objective Vital Signs: Vital Signs Temperature 98.4 F 11/07/18 14:00 Pulse Rate 77 11/07/18 14:00 Respiratory Rate 20 11/07/18 14:00 Blood Pressure 147/71 11/07/18 14:00 O2 Sat by Pulse Oximetry (%) 97 11/07/18 09:00 Constitutional: Yes: Calm Eyes: Yes: Conjunctiva Clear HENT: Yes: Atraumatic Neck: Yes: Supple Cardiovascular: Yes: S1, S2 Respiratory: Yes: CTA Bilaterally Gastrointestinal: Yes: Normal Bowel Sounds, Soft Genitourinary: Yes: WNL Musculoskeletal: Yes: WNL Edema: No Neurological: Yes: Oriented Psychiatric: Yes: Oriented Labs: CBC, BMP 11/04/18 17:28 11/07/18 06:05 INR, PTT INR 1.32 (0.83-1.09) H 11/04/18 17:28 Problem List - Problems (1) Fall Code(s): W19.XXXA - UNSPECIFIED FALL, INITIAL ENCOUNTER Qualifiers: Encounter type: subsequent encounter Qualified Code(s): W19.XXXD - Unspecified fall, subsequent encounter (2) Kidney injury Code(s): S37.009A - UNSPECIFIED INJURY OF UNSPECIFIED KIDNEY, INITIAL ENCOUNTER (3) Repeated falls Code(s): R29.6 - REPEATED FALLS Assessment/Plan Current Medications Generic Name Dose Route Start Last Admin Trade Name Freq PRN Reason Stop Dose Admin Acetaminophen 650 mg 11/04/18 20:39 11/05/18 12:17 Tylenol - PO 650 mg Q6H PRN Administration FEVER Bacitracin 1 applic 11/05/18 22:00 11/07/18 09:34 Bacitracin - TP 1 applic BID JOSUE Administration Cyanocobalamin 100 mcg 11/05/18 10:00 11/07/18 09:30 Vitamin B12 - PO 100 mcg DAILY JOSUE Administration Folic Acid 1 mg 11/05/18 10:00 11/07/18 09:30 Folic Acid - PO 1 mg DAILY JOSUE Administration Heparin Sodium (Porcine) 5,000 unit 11/04/18 22:00 11/07/18 09:31 Heparin - SQ 5,000 unit BID JOSUE Administration Mirtazapine 30 mg 11/04/18 22:00 11/06/18 21:51 Remeron - PO 30 mg HS JOSUE Administration Quetiapine Fumarate 25 mg 11/04/18 22:00 11/06/18 21:50 Seroquel - PO 25 mg HS JOSUE Administration Thiamine HCl 100 mg 11/05/18 10:00 11/07/18 09:34 Vitamin B1 - PO 100 mg DAILY JOSUE Administration Impression 1. SLY 2. rhabdo 3. hx CVA 4. depression 5. etoh abuse 6. multiple abrasions Plan - renal function is improved - cpk improved - he is stable off of fluids - will follow PRN - can have renal ultrasound as outpt - pt is tolerating diet
== END 2018-11-07 19:42 | DRG 683 ==
LOC: JER 14:53 → JERBED 19:35 → J4W 21:51
PROVIDERS: ADMIT Internal Medicine; ATTEND Internal Medicine
DX: N17.9 Acute kidney failure, unspecified (principal); M62.82 Rhabdomyolysis; I13.0 Hypertensive heart and chronic kidney disease with heart failure and stage 1 through stage 4 chronic kidney disease, or unspecified chronic kidney disease; F13.20 Sedative, hypnotic or anxiolytic dependence, uncomplicated; N18.9 Chronic kidney disease, unspecified; R29.6 Repeated falls; F03.90 Unspecified dementia, unspecified severity, without behavioral disturbance, psychotic disturbance, mood disturbance, and anxiety; F41.9 Anxiety disorder, unspecified; Z86.73 Personal history of transient ischemic attack (TIA), and cerebral infarction without residual deficits; J44.9 Chronic obstructive pulmonary disease, unspecified; I50.9 Heart failure, unspecified; Z87.891 Personal history of nicotine dependence; R35.0 Frequency of micturition; F32.9 Major depressive disorder, single episode, unspecified; F10.20 Alcohol dependence, uncomplicated; T14.8XXA Other injury of unspecified body region, initial encounter; W01.0XXA Fall on same level from slipping, tripping and stumbling without subsequent striking against object, initial encounter; Y93.89 Activity, other specified; Y92.038 Other place in apartment as the place of occurrence of the external cause; Y99.8 Other external cause status
CPT/HCPCS: 36415; 70450-TC; 71045-TC-FY; 72125-TC; 72170-TC-FY; 73560-TC-LT-FY; 73560-TC-RT-FY; 80048; 80053; 80307; 81003; 82550; 82553; 83735; 84100; 84484; 85025; 85610; 86850; 86900; 86901; 87086; 93005; 93010; 93306-TC; 97116-GP; 99282-25; J1644; J7030